=== PATIENT | female | born 1965 | race African-American/Black ===

== ENCOUNTER 2017-07-07 18:50 | Emergency (ER) | payer MEDICAID, OTHER ==
[~2017-07-07] VITALS: Ht 160 cm; Wt 108.9 kg
[~2017-07-07 18:50] MED LIST: CEPHALEXIN500 MG ORAL; IBUPROFEN600 MG ORAL; VALIUM5 MG PO; VIBRAMYCIN100 MG ORAL
[2017-07-07 19:20] VITALS: BP 133/97
[2017-07-07] MEDS ORDERED: Dexamethasone 4mg/ml vial IM ONE (19:45)
[2017-07-07] MEDS ORDERED: Ketorolac 60mg Inj IM ONE (19:45)
[2017-07-07] MEDS ORDERED: IBUPROFEN600 MG ORAL (19:52)
[2017-07-07] MEDS ORDERED: ACETAMINOPHEN-1 EAC1 ORAL (19:52)
[2017-07-07] MEDS ORDERED: AMOXICILLIN500 MG ORAL (19:52)
[2017-07-07 20:05] VITALS: BP 133/97
--- NOTE | 2017-07-08 12:21 | Emergency Room Report ---
History of Present Illness General Chief Complaint: Sore Throat Source: Patient Present Illness HPI The patient is a 52-year-old female Presenting for sore throat and cough for the past 3 days. She also admits to subjective fevers. She denies any recent travel or sick contacts. Pain is a 10 out of 10 burning sensation to the back of the throat. Worse with swallowing. She denies other symptoms including chest pain, shortness of breath, wheezing Allergies: Coded Allergies: No Known Allergies (Unverified , 09/22/12) Patient History Past Medical History: see triage record Pertinent Family History: none Reviewed Nursing Documentation: PMH: Agreed, PSxH: Agreed Nursing Documentation-PMH Hx Hypertension: Yes Hx COPD: Yes Review of Systems All Other Systems: negative except mentioned in HPI Physical Exam Vital Signs Date Time Temp Pulse Resp B/P (MAP) Pulse Ox O2 Delivery O2 Flow Rate FiO2 07/07/17 19:05 99.9 104 18 133/97 98 Room Air Sp02 EP Interpretation: reviewed, normal General Appearance: no apparent distress, alert, GCS 15, non-toxic Head: normocephalic, atraumatic Eyes: bilateral eye normal inspection, bilateral eye PERRL ENT: hearing grossly normal, no angioedema, normal voice, uvula midline, tonsillar swelling, pharyngeal erythema, tonsillar exudate Neck: full range of motion, supple/symm/no masses Respiratory: chest non-tender, lungs clear, normal breath sounds, speaking full sentences Cardiovascular #1: regular rate, rhythm, no edema Musculoskeletal: back normal, gait/station normal, normal range of motion, non- tender Neurologic: alert, oriented x3, responsive, motor strength/tone normal, sensory intact, speech normal Psychiatric: judgement/insight normal, memory normal, mood/affect normal, no suicidal/homicidal ideation Skin: normal color, no rash, warm/dry, well hydrated Lymphatic: adenopathy Medical Decision Making PA Attestation Dr. [email or web address] is my supervising physician. Patient management was discussed with my supervising physician Diagnostic Impression: Primary Impression: Pharyngitis, acute Qualified Codes: J02.9 - Acute pharyngitis, unspecified ER Course The patient is a 52-year-old female Presenting for sore throat and cough for the past 3 days. Differential diagnosis include but not limited to pharyngitis, sinusitis, AOM, bronchitis, PNA Physical exam: Vitals within normal limits. Afebrile but 99.9F. No apparent distress HEENT exam: There is bilateral tonsillar edema, erythema, and exudate. Uvula midline. Moist mucous membranes. There is bilateral cervical lymphadenopathy. Lungs are clear to auscultation bilaterally Skin is warm and dry. No rash The patient will be discharged home with a prescription for amoxicillin and pain medication and is given ER precautions. Patient will followup with primary care Last Vital Signs Date Time Temp Pulse Resp B/P (MAP) Pulse Ox O2 Delivery O2 Flow Rate FiO2 07/07/17 20:05 98 18 133/97 98 07/07/17 19:20 99.9 Room Air Status: improved Disposition: HOME, SELF-CARE Condition: Improved Scripts Ibuprofen* (MOTRIN*) 600 Mg Tablet 600 MG ORAL Q8H Y for For Pain, #30 TAB 0 Refills Prov: OLAF ARNDT P.A. 07/07/17 Acetaminophen With Codeine (T#3) (TYLENOL #3 TAB*) Y Tab 1 TAB ORAL Q6HR Y for For Pain, #8 TAB Prov: OLAF ARNDT P.A. 07/07/17 Amoxicillin* (AMOXIL*) 500 Mg Capsule 500 MG ORAL Q12HR, #20 CAP Prov: OLAF ARNDT P.A. 07/07/17 Referrals: [facility],REFERRING (PCP) Patient Instructions: Pharyngitis Additional Instructions: I discussed my findings with the patient. All questions and concerns have been answered. Treatment and medication compliance have been addressed. I advised the patient that they need to follow up with PMD in 3-5 days. Return to ED if symptoms worsen, new symptoms arise, or if needed for any reason. Patient verbalized understanding of discharge instructions. OLAF ARNDT Jul 08, 2017 12:21
== END 2017-07-07 20:05 | disposition home or self-care (01) ==
LOC: EMR 19:21
DX: J02.9 Acute pharyngitis, unspecified (principal); J44.9 Chronic obstructive pulmonary disease, unspecified; I10 Essential (primary) hypertension
CPT/HCPCS: 96372; 99284; J1100